=== PATIENT | male | born 1980 | race Caucasian/White ===

== ENCOUNTER 2021-01-18 13:07 | Emergency (ER) | payer BC ==
[~2021-01-18] VITALS: Ht 175.3 cm; Wt 113.4 kg
[~2021-01-18 13:07] MED LIST: CIPROFLOXACIN500 M1 PO; FLOMAX0.4 MG PO; IBUPROFEN 800800 M1 PO; PERCOCET 5-3251 EACH PO; PRILOSEC20 MG PO
[2021-01-18 14:11] LABS: ICTOTEST (BILI CONFIRMATORY) Negative (Negative); URINE BILIRUBIN 1+ (Negative); URINE BLOOD NEGATIVE (Negative); URINE CLARITY CLEAR; URINE COLOR YELLOW; URINE GLUCOSE-RANDOM NEGATIVE (Negative); URINE KETONES TRACE (Negative); URINE LEUKOCYTES NEGATIVE (Negative); URINE NITRITE NEGATIVE (Negative); URINE PROTEIN NEGATIVE (Negative); URINE SPECIFIC GRAVITY >= 1.030 (1.005-1.030); URINE UROBILINOGEN 0.2 E.U./dl (0.2-1.0)
[2021-01-18 14:50] LABS: ABSOLUTE EOSINOPHILS 0.1 thou/uL (0.0-0.7); ABSOLUTE LYMPHOCYTES 1.8 thou/uL (0.8-5.3); ABSOLUTE MONOCYTES 0.7 thou/uL (0.0-1.2); ABSOLUTE NEUTROPHILS 4.1 thou/uL (1.6-8.1); BASOPHILS 0.7 %; EOSINOPHILS 1.3 %; HEMOGLOBIN 16.4 gm/dL (14.0-18.0); LYMPHOCYTES 27.2 %; MCH 31.9 pg (26.0-34.0); MCHC 35.7 g/dL (28.0-37.0); MCV 89.3 fL (80.0-100.0); MONOCYTES 10.4 %; MPV 8.5 fl. (7.2-11.1); NUCLEATED RBCS 0 /100WBC; PLATELET COUNT* 187 thou/uL (150-400); POLYS 60.4 %; RBC 5.15 mil/uL (4.50-6.00); RDW-CV 13.7 % (10.5-14.5); WBC 6.8 thou/uL (4.0-11.0)
[2021-01-18 15:00] LABS: CALCIUM 8.9 mg/dL (8.5-10.1); CREATININE 1.2 mg/dL (0.6-1.3); POTASSIUM 4.1 mmol/L (3.5-5.1)
[2021-01-18 15:05] LABS: ALBUMIN 4.4 g/dL (3.4-5.0); TOTAL BILIRUBIN 0.7 mg/dL (<0.1-1.0); TOTAL PROTEIN 7.5 g/dL (6.4-8.2)
[2021-01-18] MEDS ORDERED: APAP W/CODEINE1 TA2 PO (15:54)
[2021-01-18] MEDS ORDERED: FLEXERIL PO (15:54)
[2021-01-18] MEDS ORDERED: MEDROLDOSEPACK PO (15:54)
[2021-01-18 16:00] VITALS: BP 149/109
== END 2021-01-18 16:00 | disposition home or self-care (01) ==
LOC: M.ERS 13:07
PROVIDERS: Emergency Medicine; Physician Assistant
DX: M54.9 Dorsalgia, unspecified (principal); R10.9 Unspecified abdominal pain; I10 Essential (primary) hypertension